=== PATIENT | female | born 1995 | race Caucasian/White ===

== ENCOUNTER 2018-07-09 21:19 | Emergency (ER) | payer OTHER ==
[~2018-07-09] VITALS: Ht 180.3 cm; Wt 90.7 kg
[2018-07-09] MEDS ORDERED: TOPAMAX 25 MG T25 M1 PO (21:37)
[2018-07-09] MEDS ORDERED: XANAX1 MG PO (21:38)
[2018-07-09] MEDS ORDERED: ADIPEX-P37.5 MG PO (21:38)
[2018-07-09] MEDS ORDERED: LORAZEPAM 22 MG/1 ML PO (21:38)
[2018-07-09 22:04] LABS: ABSOLUTE LYMPHOCYTES 2.1 thou/uL (0.8-5.3); ABSOLUTE MONOCYTES 0.8 thou/uL (0.0-1.2); ABSOLUTE NEUTROPHILS 6.5 thou/uL (1.6-8.1); BASOPHILS 0.4 %; EOSINOPHILS 0.3 %; HEMOGLOBIN 13.4 gm/dL (12.0-15.0); LYMPHOCYTES 22.3 %; MCH 29.1 pg (26.0-34.0); MCHC 33.4 g/dL (28.0-37.0); MCV 87.2 fL (80.0-100.0); MONOCYTES 8.7 %; MPV 9.4 fl. (7.2-11.1); NUCLEATED RBCS 0 /100WBC; PLATELET COUNT* 297 thou/uL (150-400); POLYS 68.3 %; RBC 4.59 mil/uL (4.20-5.00); RDW-CV 14.6 % (10.5-14.5); WBC 9.6 thou/uL (4.0-11.0)
[2018-07-09 22:10] LABS: URINE BILIRUBIN NEGATIVE (Negative); URINE BLOOD NEGATIVE (Negative); URINE CLARITY SL CLOUDY; URINE COLOR YELLOW; URINE GLUCOSE-RANDOM NEGATIVE (Negative); URINE KETONES 1+ (Negative); URINE LEUKOCYTES-REFLEX TRACE (Negative); URINE NITRITE-REFLEX NEGATIVE (Negative); URINE PROTEIN NEGATIVE (Negative); URINE SPECIFIC GRAVITY 1.015 (1.005-1.030); URINE UROBILINOGEN 0.2 E.U./dl (0.2-1.0)
[2018-07-09 22:15] LABS: CALCIUM 8.7 mg/dL (8.5-10.1); CREATININE 0.8 mg/dL (0.6-1.3)
[2018-07-09 22:16] LABS: ALBUMIN 3.9 g/dL (3.4-5.0); TOTAL BILIRUBIN 0.5 mg/dL (<0.1-1.0); TOTAL PROTEIN 7.7 g/dL (6.4-8.2)
[2018-07-09 22:20] LABS: AMP/METHAMP Negative (Negative); BARBITURATES Negative (Negative); BENZODIAZEPINES Negative (Negative); COCAINE Negative (Negative); METHADONE Negative (Negative); OPIATES Negative (Negative); PCP Negative (Negative); THC Negative (Negative)
[2018-07-09 22:20] LABS: ALCOHOL < 10 mg/dL (<10); SALICYLATE < 2.8 mg/dL (2.8-20.0)
[2018-07-09 22:22] LABS: ACETAMINOPHEN < 2 ug/mL (10-30)
[2018-07-09 22:46] LABS: SQUAMOUS 4-10 Moderate /LPF (0-3)
[2018-07-09 22:47] LABS: CASTS None Seen /LPF (None Seen)
[2018-07-09 22:48] LABS: AMORPHOUS PHOSPHATES Moderate /LPF (None Seen); URINE RBC None Seen /HPF (0-2); URINE WBC-REFLEX 0-5 Rare /HPF (0-5)
[2018-07-10 11:09] VITALS: BP 122/62
== END 2018-07-10 11:12 | disposition home or self-care (01) ==
LOC: M.ERS 21:19
PROVIDERS: Emergency Medicine Emergency Medical Services
DX: F32.9 Major depressive disorder, single episode, unspecified (principal); Z98.890 Other specified postprocedural states

== ENCOUNTER 2018-10-29 09:24 | Emergency (ER) | payer OTHER ==
[~2018-10-29] VITALS: Ht 170.2 cm; Wt 68.0 kg
[~2018-10-29 09:24] MED LIST: ADIPEX-P37.5 MG PO; LORAZEPAM 22 MG/1 ML PO; TOPAMAX 25 MG T25 M1 PO; XANAX1 MG PO
[2018-10-29] MEDS ORDERED: ACETAMINOPHEN-1 EAC2 PO (10:52)
[2018-10-29] MEDS ORDERED: IBUPROFEN 800800 MG PO (10:52)
[2018-10-29 11:12] VITALS: BP 126/49
== END 2018-10-29 11:14 | disposition home or self-care (01) ==
LOC: M.ERS 09:24
DX: S06.0X0A Concussion without loss of consciousness, initial encounter (principal); F32.9 Major depressive disorder, single episode, unspecified; F41.9 Anxiety disorder, unspecified; G43.909 Migraine, unspecified, not intractable, without status migrainosus; Z98.890 Other specified postprocedural states; W10.9XXA Fall (on) (from) unspecified stairs and steps, initial encounter; Y92.89 Other specified places as the place of occurrence of the external cause; Y93.89 Activity, other specified; Y99.8 Other external cause status

== ENCOUNTER 2020-04-17 10:45 | Emergency (ER) | payer OTHER ==
[~2020-04-17] VITALS: Ht 180.3 cm; Wt 86.2 kg
[~2020-04-17 10:45] MED LIST changes: +ACETAMINOPHEN-1 EAC2 PO; +IBUPROFEN 800800 MG PO
[2020-04-17] MEDS ORDERED: AUGMENTIN 875-1 EACH PO (12:59)
[2020-04-17] MEDS ORDERED: NORCO 5-325 TA1 EAC2 PO (12:59)
[2020-04-17] MEDS ORDERED: IBUPROFEN 800800 M1 PO (12:59)
[2020-04-17 13:08] VITALS: BP 120/56
== END 2020-04-17 13:08 | disposition home or self-care (01) ==
LOC: M.ERS 10:45
DX: S51.832A Puncture wound without foreign body of left forearm, initial encounter (principal); S51.831A Puncture wound without foreign body of right forearm, initial encounter; S61.432A Puncture wound without foreign body of left hand, initial encounter; G43.909 Migraine, unspecified, not intractable, without status migrainosus; Z98.890 Other specified postprocedural states; Z91.040 Latex allergy status; W54.0XXA Bitten by dog, initial encounter; Y93.89 Activity, other specified; Y92.89 Other specified places as the place of occurrence of the external cause; Y99.8 Other external cause status

== ENCOUNTER 2021-07-04 21:33 | Emergency (ER) | payer OTHER ==
[~2021-07-04] VITALS: Ht 180.3 cm; Wt 89.4 kg
[~2021-07-04 21:33] MED LIST changes: +AUGMENTIN 875-1 EACH PO; +IBUPROFEN 800800 M1 PO; +NORCO 5-325 TA1 EAC2 PO
[2021-07-04 22:52] VITALS: BP 111/49
== END 2021-07-04 22:52 | disposition home or self-care (01) ==
LOC: M.ERS 21:33
DX: S93.401A Sprain of unspecified ligament of right ankle, initial encounter (principal); F32.9 Major depressive disorder, single episode, unspecified; F41.9 Anxiety disorder, unspecified; G43.909 Migraine, unspecified, not intractable, without status migrainosus; Z98.890 Other specified postprocedural states; Z88.8 Allergy status to other drugs, medicaments and biological substances; Z91.040 Latex allergy status; X50.1XXA Overexertion from prolonged static or awkward postures, initial encounter; Y93.89 Activity, other specified; Y92.89 Other specified places as the place of occurrence of the external cause; Y99.0 Civilian activity done for income or pay